=== PATIENT | male | born 1980 | race Caucasian/White ===

== ENCOUNTER → 2016-05-19 | Outpatient (CLI) | payer MEDICAID ==
--- NOTE | 2016-05-19 12:17 | US ---
Thyroid Ultrasound Indication: 36-year-old male with history of thyroid cancer and total thyroidectomy in 2008. Surveill ance. Technique: Longitudinal and transverse ultrasound imaging of the thyroid gland. Comparison: Neck ultrasound dated December 19, 2014. Findings: No recurrent nodule in the thyroidectomy bed. No enlarged lymph nodes have developed along the right or left neck aramis chains. The airway is midline. Impression: Negative. No evidence of locoregional recurrence.
== END ==
LOC: BMCIMAGING 11:15
PROVIDERS: ATTEND Internal Medicine Endocrinology, Diabetes & Metabolism
DX: Z08 Encounter for follow-up examination after completed treatment for malignant neoplasm (principal); Z85.850 Personal history of malignant neoplasm of thyroid
CPT/HCPCS: 76536-PO